=== PATIENT | female | born 1995 | race Caucasian/White ===

== ENCOUNTER 2018-11-21 06:53 | Emergency (ER) | payer BC, MEDICAID ==
[2018-11-21] MEDS: LIDOCAINE 1% (MDV) 20 ML INJ SC (08:05)
== END 2018-11-21 09:06 | disposition left against medical advice (07) ==
LOC: FTE 06:53
DX: S00.85XA Superficial foreign body of other part of head, initial encounter (principal); J45.909 Unspecified asthma, uncomplicated; X58.XXXA Exposure to other specified factors, initial encounter; Y92.9 Unspecified place or not applicable
CPT/HCPCS: 12011; 99282-25

== ENCOUNTER 2018-12-07 05:36 | Emergency (ER) | payer BC | END 2018-12-07 06:20 | disposition home or self-care (01) | LOC: FTE 05:36 | DX: Z48.02 Encounter for removal of sutures (principal); J45.909 Unspecified asthma, uncomplicated | CPT/HCPCS: 99281 ==